=== PATIENT | female | born 1960 | race Caucasian/White ===

== ENCOUNTER → 2018-04-26 10:03 | Day surgery (SDC) | payer BC ==
[~2018-04-26 10:03] MED LIST: ALPRAZolam TAB* 0.25 MG PO ONE; Buffered Lidocaine 1% SYRIN* 1 ML/SYRINGE INTRADERM ONE; Dexamethasone IV* 4 MG/ML 1 ML (4 MG) ONE; DiMENhydriNATE IV* 50 MG/ML VIAL ONE; Famotidine IV* 10 MG/ML 2 ML (20 mg) IV ONE; Famotidine IV* 10 MG/ML 2 ML (20 mg) ONE; Lactated Ringers 1000 ML Bag* 1,000 ML IV SCH; Levalbuterol 0.63MG/3ML NEB* UNIT OF USE INH ONE; Levalbuterol 0.63MG/3ML NEB* UNIT OF USE INH PRN; Lidocaine 2% PF * 5 ML VIAL ONE; Ondansetron INJ* 2 MG/ML VIAL ONE; Propofol* 10 MG/ML 20 ML BTL ONE; Rocuronium* 10 MG/ML VIAL ONE; Succinylcholine* 20 MG/ML 10 ML VIAL ONE; fentaNYL* 50 MCG/ML 2 ML VIAL (100 MCG VIAL) ONE
--- NOTE | 2018-04-26 13:19 | BRIEFOPN ---
Brief Operative Note - Surgery Procedures: Bronchoscopy Diagnostic: Informed consent was obtained. Time out was performed after patient was intubated by Anesthesia. Reason: RUL and possible RML atelectasis on the PET CT. The Mer[place] was sharp. The LEO was pink. There were thick white secretions that were suctioned out. There were no endobronchial lesions. Left Lower Lobe had thick white secretions that were suctioned out. There were no endobronchail lesions evident. RUL was unremarkable with no endobronchial lesions. RML had thick white secretions that were suctioned out. No endobronchial lesions were evident. The RLL had some white secretions which were suctioned out. No endobronchial lesions were evident. The mucosa was soft and pink. Impression: Atelectasis is related to mucous. Consider using Mucinex to thin the secretions and deep breathing. CT chest to be repeated in 3 months to Follow spiculated PET negative Ground Glass nodule. [facility]
[2018-04-26 14:46] VITALS: BP 123/83
== END | disposition home or self-care (01) ==
LOC: OR 10:03
PROVIDERS: ATTEND Internal Medicine
DX: J98.11 Atelectasis (principal); Z72.0 Tobacco use; J44.9 Chronic obstructive pulmonary disease, unspecified; M81.0 Age-related osteoporosis without current pathological fracture; Z86.711 Personal history of pulmonary embolism
CPT/HCPCS: J0330; J1100; J1240; J2405; J2704; J3010